=== PATIENT | female | born 1995 | race Caucasian/White ===

== ENCOUNTER → 2019-07-26 | Outpatient (REF) | payer OTHER ==
[2019-07-26 13:06] LABS: BASO % 0.2 % (0.0-1.0); EOS # 0.1 10^3/uL (0.0-0.5); EOS % 1.3 % (0.0-3.0); HEMATOCRIT 44.6 % (36.0-47.0); HEMOGLOBIN 14.8 g/dl (12.0-15.5); LYMPH # 2.3 10^3/uL (1.5-5.0); LYMPH % 42.3 % (24.0-44.0); MEAN CORPUSCULAR HEMOGLOBIN 30.6 pg (27.0-33.0); MEAN CORPUSCULAR HGB CONC 33.2 g/dl (32.0-36.5); MEAN CORPUSCULAR VOLUME 92.1 fl (80.0-96.0); MONO # 0.5 10^3/uL (0.0-0.8); MONO % 8.7 % (0.0-5.0); NEUTROPHILS # 2.6 10^3/uL (1.5-8.5); NEUTROPHILS % 47.3 % (36.0-66.0); PLATELET COUNT, AUTOMATED 199 10^3/uL (150-450); RED BLOOD COUNT 4.84 10^6/uL (4.00-5.40); WHITE BLOOD COUNT 5.5 10^3/uL (4.0-10.0)
[2019-07-26 13:20] LABS: ALBUMIN 4.3 GM/DL (3.2-5.2); ALT/SGPT 15 U/L (12-78); BILIRUBIN,TOTAL 0.2 MG/DL (0.2-1.0); BLOOD UREA NITROGEN 9 MG/DL (7-18); CALCIUM LEVEL 9.3 MG/DL (8.5-10.1); CARBON DIOXIDE LEVEL 31 MEQ/L (21-32); CHLORIDE LEVEL 108 MEQ/L (98-107); CREATININE FOR GFR 0.74 MG/DL (0.55-1.30); GLOMERULAR FILTRATION RATE > 60.0 (>60); GLUCOSE, FASTING 80 MG/DL (70-100); POTASSIUM SERUM 4.5 MEQ/L (3.5-5.1); RHEUMATOID FACTOR QUANT < 10.0 IU/ML (<15.0); SODIUM LEVEL 141 MEQ/L (136-145); TOTAL 25(OH) VITAMIN D 15.6 NG/ML (30.0-100.0); TOTAL PROTEIN 7.5 GM/DL (6.4-8.2)
[2019-07-26 13:49] LABS: ERYTHROCYTE SEDIMENTATION RATE 2 mm/hr (0-20)
[2019-07-27 14:06] LABS: ANTINUCLEAR ANTIBODIES DIRECT Negative (Negative)
== END ==
LOC: M LABNEURO 12:34
PROVIDERS: ATTEND Psychiatry & Neurology Neurology
DX: R51 Headache (principal)

== ENCOUNTER 2020-04-15 15:27 | Emergency (ER) | payer OTHER ==
[~2020-04-15] VITALS: Ht 167.6 cm; Wt 58.6 kg
[2020-04-15] MEDS ORDERED: DICL1GEL3 TOP (15:38)
[2020-04-15] MEDS ORDERED: ZONI50CA11 PO (15:38)
[2020-04-15] MEDS ORDERED: NAPR-837 PO (15:38)
[2020-04-15] MEDS ORDERED: OMEP-221 PO (15:38)
[2020-04-15] MEDS ORDERED: NAPR-885 PO (15:38)
[2020-04-15] MEDS ORDERED: NS 1,000 ML IV ONE (16:30)
[2020-04-15] MEDS ORDERED: KETOROLAC 30 MG/ML 1ML VIAL IV ONE (16:30)
[2020-04-15 16:57] LABS: BASO % 0.1 % (0.0-1.0); EOS % 0.3 % (0.0-3.0); HEMATOCRIT 43.4 % (36.0-47.0); LYMPH # 2.6 10^3/uL (1.5-5.0); MEAN CORPUSCULAR HEMOGLOBIN 29.8 pg (27.0-33.0); MEAN CORPUSCULAR HGB CONC 32.3 g/dl (32.0-36.5); MEAN CORPUSCULAR VOLUME 92.3 fl (80.0-96.0); MONO # 0.5 10^3/uL (0.0-0.8); MONO % 4.6 % (0.0-5.0); NEUTROPHILS # 6.9 10^3/uL (1.5-8.5); NEUTROPHILS % 68.7 % (36.0-66.0); PLATELET COUNT, AUTOMATED 201 10^3/uL (150-450); WHITE BLOOD COUNT 10.1 10^3/uL (4.0-10.0)
--- NOTE | 2020-04-15 17:11 | REP ---
INDICATION: pelvic pain, numbness, diff urinating, hx ov teratoma COMPARISON: None. TECHNIQUE: Transabdominal pelvic ultrasound followed by transvaginal examination for better evaluation of the endometrium and adnexa with color Doppler evaluation of the ovaries. FINDINGS: Bladder is collapsed. Heterogeneous retroverted uterus measures 6.5 x 3.5 x 4.3 cm. Endometrial complex measures 7.1 mm thickness. No discrete uterine or endometrial abnormality noted. Bilateral ovaries are normal in vascularity without evidence for torsion. Right ovary measures 2.9 x 2.1 x 1.8 cm; R I = 0.50. Left ovary measures 5.4 x 3.6 x 3.5 cm with 3.1 x 2.8 x 2.5 cm complex likely hemorrhagic physiologic cyst; R I = 0.48. Moderate amount of free fluid in the pelvis is nonspecific. IMPRESSION: 1. Complex left ovarian cyst possibly hemorrhagic physiologic cyst along with moderate amount of free fluid in the pelvis. <Electronically signed by Gilson Erazo > 04/15/20 [id number]
[2020-04-15 17:21] LABS: ALBUMIN 4.6 GM/DL (3.2-5.2); ALT/SGPT 14 U/L (12-78); BILIRUBIN,DIRECT 0.1 MG/DL (0.0-0.2); BILIRUBIN,TOTAL 0.3 MG/DL (0.2-1.0); BLOOD UREA NITROGEN 11 MG/DL (7-18); CALCIUM LEVEL 9.5 MG/DL (8.5-10.1); CARBON DIOXIDE LEVEL 29 MEQ/L (21-32); CHLORIDE LEVEL 107 MEQ/L (98-107); CREATININE FOR GFR 0.81 MG/DL (0.55-1.30); GLOMERULAR FILTRATION RATE > 60.0 (>60); GLUCOSE, FASTING 78 MG/DL (70-100); LIPASE 71 U/L (73-393); POTASSIUM SERUM 3.7 MEQ/L (3.5-5.1); SODIUM LEVEL 142 MEQ/L (136-145); TOTAL PROTEIN 7.6 GM/DL (6.4-8.2)
[2020-04-15 17:46] LABS: HCG, SERUM QUALITATIVE NEGATIVE (NEGATIVE)
[2020-04-15] MEDS ORDERED: ISOVUE-370 76% 100ML VIAL As Ordered ONE (17:47)
[2020-04-15 19:14] LABS: CHLAMYDIA DNA AMPLIFICATION NEGATIVE (NEGATIVE); GC DNA AMPLIFICATION NEGATIVE (NEGATIVE)
--- NOTE | 2020-04-15 19:21 | REPVR ---
PROCEDURE INFORMATION: Exam: CT Abdomen And Pelvis With Contrast Exam date and time: 04/15/2020 5:55 PM Age: 24 years old Clinical indication: Pain and abnormal findings; Abnormal radiologic finding of the abdomen; Radiologic exam and body structure: US; Abdominal pain; Localized; Lower; Additional info: Mod ff pelvis, pelvic pain, ruq abd pain, urinary symptoms TECHNIQUE: Imaging protocol: Computed tomography of the abdomen and pelvis with intravenous contrast. Radiation optimization: All CT scans at this facility use at least one of these dose optimization techniques: automated exposure control; mA and/or kV adjustment per patient size (includes targeted exams where dose is matched to clinical indication); or iterative reconstruction. Contrast material: ISOVUE 370; Contrast volume: 100 ml; Contrast route: INTRAVENOUS (IV); COMPARISON: US PELVIC NON-OB COMPLETE 04/15/2020 4:45 PM FINDINGS: Lungs: Included lung bases are clear. Liver: Normal. No mass. Gallbladder and bile ducts: Normal. No calcified stones. No ductal dilation. Pancreas: Normal. No ductal dilation. Spleen: Normal. No splenomegaly. Adrenal glands: Normal. No mass. Kidneys and ureters: Normal. No hydronephrosis. Stomach and bowel: No bowel dilatation to indicate obstruction. No pneumatosis. Appendix: No evidence of appendicitis. Intraperitoneal space: Slightly radiodense small volume free fluid in the pelvis with small amount of more dense material layering dependently. No free air. Vasculature: Unremarkable. No abdominal aortic aneurysm. Lymph nodes: Unremarkable. No enlarged lymph nodes. Urinary bladder: Unremarkable as visualized. Reproductive: There is a 3.3 x 2.7 x 2.8 cm hypodense lesion in the left adnexa, shown to be within the left ovary on ultrasound. This has Hounsfield units of 15, less dense than typically expected for a hemorrhagic cyst, with findings suggestive of hemorrhagic cyst on ultrasound. Adjacent small amount of fluid in the pelvis is more dense than simple fluid, with Hounsfield units of 31. This could be from a component of blood products, although infected material or proteinaceous content could also contribute to this appearance. Ovarian parenchyma bilaterally is relatively obscured by this slightly dense fluid. There is slightly more dense material along the posterior margin which is small in volume which may represent blood clot with Hounsfield units of 73. Bones/joints: Unremarkable. No acute fracture. Soft tissues: Unremarkable. IMPRESSION: 1. 3.3 cm partially collapsed cyst in the left ovary, less dense than typically expected for a hemorrhagic cyst (ultrasound appearance suggestive of hemorrhagic cyst). Small amount of slightly radiodense free fluid in the pelvis, with some material with higher density layering posteriorly. Overall, this constellation of findings could represent an atypical hypodense left ovarian hemorrhagic cyst which is partially collapsed with adjacent small volume hemoperitoneum, although tubo-ovarian abscess with small volume infected fluid is also possible. Suggest correlation with patient symptoms and presentation, and consider follow-up cross-sectional imaging if the patient's symptoms persist or worsen. Electronically signed by: Ayesha Abraham On 04/15/2020 19:21:33 PM
[2020-04-15] MEDS ORDERED: HYDR-3713 PO ×2 (19:54→19:59)
[2020-04-15] MEDS ORDERED: IBUP-1022 PO (19:54)
[2020-04-15] MEDS ORDERED: NORCO 5/325MG TABLET (BULK FOR ED) PO ONE (20:00)
[2020-04-15 20:26] VITALS: BP 106/74
--- NOTE | 2020-04-18 17:44 | ED PDOC ---
Post-Departure Follow-Up ft [facility] faxed formal report of ct abd/p for fu Nadia Dietz MD Apr 18, 2020 17:44
== END 2020-04-15 20:28 | disposition home or self-care (01) ==
LOC: M ED 15:27
DX: K66.1 Hemoperitoneum (principal); K58.9 Irritable bowel syndrome, unspecified; Z79.899 Other long term (current) drug therapy; Z88.8 Allergy status to other drugs, medicaments and biological substances
CPT/HCPCS: 74177; 76856; 80048; 80076; 81001; 83690; 84703; 85025; 87210; 87661; 96361; 96374; 99284; J1885; Q9967

== ENCOUNTER 2020-12-14 16:54 | Emergency (ER) | payer OTHER ==
[~2020-12-14] VITALS: Ht 167.6 cm; Wt 67.6 kg
[~2020-12-14 16:54] MED LIST: DICL1GEL3 TOP; HYDR-3713 PO; IBUP-1022 PO; NAPR-837 PO; NAPR-885 PO; OMEP-221 PO; ZONI50CA11 PO
[2020-12-14 18:34] LABS: BASO % 0.2 % (0.0-1.0); EOS # 0.1 10^3/uL (0.0-0.5); EOS % 0.6 % (0.0-3.0); HEMATOCRIT 44.8 % (36.0-47.0); HEMOGLOBIN 15.2 g/dl (12.0-15.5); LYMPH # 2.1 10^3/uL (1.5-5.0); LYMPH % 23.4 % (24.0-44.0); MEAN CORPUSCULAR HEMOGLOBIN 30.6 pg (27.0-33.0); MEAN CORPUSCULAR HGB CONC 33.9 g/dl (32.0-36.5); MEAN CORPUSCULAR VOLUME 90.3 fl (80.0-96.0); MONO # 0.6 10^3/uL (0.0-0.8); MONO % 7.3 % (2.0-8.0); NEUTROPHILS % 68.4 % (36.0-66.0); PLATELET COUNT, AUTOMATED 212 10^3/uL (150-450); RED BLOOD COUNT 4.96 10^6/uL (4.00-5.40); WHITE BLOOD COUNT 8.8 10^3/uL (4.0-10.0)
[2020-12-14] MEDS ORDERED: ACETAMINOPHEN 500 MG TAB PO ONE (18:35)
[2020-12-14 19:05] LABS: ALBUMIN 4.2 GM/DL (3.2-5.2); ALT/SGPT 25 U/L (12-78); BILIRUBIN,DIRECT < 0.1 MG/DL (0.0-0.2); BILIRUBIN,TOTAL 0.3 MG/DL (0.2-1.0); CK-MB VALUE MASS < 1.0 NG/ML (<3.6); CPK CREATINE PHOSPHOKINASE 69 U/L (26-192); LIPASE 66 U/L (73-393); MB/CK RELATIVE INDEX 1.45 (< OR =4); TOTAL PROTEIN 7.8 GM/DL (6.4-8.2); TROPONIN I < 0.02 NG/ML (< 0.10)
[2020-12-14] MEDS ORDERED: KETOROLAC 30 MG/ML 1ML VIAL IV ONE (19:35)
[2020-12-14] MEDS ORDERED: METOCLOPRAMIDE INJ 10MG/2ML VIAL (J2765 PER 1) IV ONE (19:35)
--- NOTE | 2020-12-14 19:35 | REP ---
INDICATION: lower abd/pelvic pain, h/o teratoma and ovarian cysts. COMPARISON: 04/15/2020. TECHNIQUE: Transabdominal and transvaginal scanning performed. FINDINGS: Uterine dimensions are 6.5 x 3.4 x 3.5 cm. Endometrial echo is 9 mm in AP dimension and centrally placed. The uterus is retroverted. The bladder is empty. The right ovary has dimensions of 5.0 x 2.7 x 3.3 cm. It's Doppler flow is normal with a resistive index of 0.44. The left ovary dimensions are 3.1 x 1.6 x 2.2 cm. It's Doppler flow was normal with resistive index of 0.34. There is a complex septated cystic structure in the right ovary which may represent a small hemorrhagic cyst, 3.6 x 2.6 x 2.6 cm. There is mild free fluid in the adnexal regions. IMPRESSION: Complex right ovarian cyst 3.6 cm. No torsion. Mild free fluid in the adnexal regions. <Electronically signed by Dylan Vides > 12/14/201931
[2020-12-14 20:32] VITALS: BP 110/73
[2020-12-14] MEDS ORDERED: IBUP80TA PO (20:33)
--- NOTE | 2020-12-15 10:16 | ECGEPIP ---
[facility] - ED Test Date: 2020-12-14 Pat Name: FOSTER ARROYO Department: Room: - Gender: Female Product Examiner: : 1995 Requested By: ALMITA Rolon PA-C Order Number: [id number] Reading MD: Sylvia Weeks Measurements Intervals [place] Rate: 66 P: 34 ID: [id number] QRS: 21 QRSD: 96 T: 30 QT: 376 QTc: 394 Interpretive Statements Normal sinus rhythm Incomplete right bundle branch block No prior Electronically Signed on 12-15-2020 10:16:11 EDT by Sylvia Weeks
--- NOTE | 2020-12-18 12:56 | ED PDOC ---
Post-Departure Follow-Up pelvic us faxed to [facility] for fu Nadia Dietz MD Dec 18, 2020 12:56
== END 2020-12-14 21:07 | disposition home or self-care (01) ==
LOC: M ED 16:54
DX: N83.291 Other ovarian cyst, right side (principal); R10.2 Pelvic and perineal pain; R11.0 Nausea; G43.909 Migraine, unspecified, not intractable, without status migrainosus; I45.19 Other right bundle-branch block; K21.9 Gastro-esophageal reflux disease without esophagitis; K58.8 Other irritable bowel syndrome; M50.30 Other cervical disc degeneration, unspecified cervical region; F41.9 Anxiety disorder, unspecified; F32.9 Major depressive disorder, single episode, unspecified; F17.290 Nicotine dependence, other tobacco product, uncomplicated; Z79.899 Other long term (current) drug therapy
CPT/HCPCS: 76830; 76856; 80047; 80076; 81001; 82550; 82553; 83690; 84484; 84702; 85025; 93005; 93041; 93976; 96374; 96375; 99284; J1885; J2765

== ENCOUNTER → 2021-08-01 | Outpatient (CLI) | payer OTHER ==
[~2021-08-01] MED LIST changes: +IBUP80TA PO; -OMEP-221 PO; +OMEP40CA5 PO
== END ==
LOC: M RAD 11:22
PROVIDERS: ATTEND Nurse Practitioner Family
DX: M25.562 Pain in left knee (principal)